=== PATIENT | male | born 1965 | race Caucasian/White ===

== ENCOUNTER → 2024-03-02 07:11 | Outpatient (REF) | payer OTHER, SELFPAY | LOC: DHCBC/DCA 07:11 | PROVIDERS: ATTENDING PHYSICIAN Internal Medicine Cardiovascular Disease; FAMILY PHYSICIAN Physician Assistant Medical | DX: Z95.5 Presence of coronary angioplasty implant and graft (principal); R20.0 Anesthesia of skin; I25.10 Atherosclerotic heart disease of native coronary artery without angina pectoris | CPT/HCPCS: 78452; 93017; 93306; A9500 ==